=== PATIENT | male | born 1990 ===

== ENCOUNTER 2017-05-20 07:30 | Day surgery (SDC) | payer SELFPAY ==
[~2017-05-20] VITALS: Ht 180.3 cm; Wt 93.0 kg
[2017-05-20] MEDS ORDERED: NKM (08:26)
[2017-05-20] MEDS ORDERED: VALIUM10 MG ORAL (08:27)
[2017-05-20 08:31] VITALS: BP 136/60
[2017-05-20] MEDS ORDERED: Lidocaine 1% 10mg/ml/Epi 0.005mg/ml 30ml vial INJ ONE (08:55)
[2017-05-20] MEDS ORDERED: Maxitrol Opth Oint 3.5gm ONE (08:55)
[2017-05-20] MEDS ORDERED: BSS 15ml BTL ONE (08:55)
[2017-05-20] MEDS ORDERED: Povidone-Iodine 5% opth solution ONE (08:55)
[2017-05-20] MEDS ORDERED: Lidocaine 2% 20mg/ml/Epi 0.005mg/ml 20ml vial ONE (08:55)
--- NOTE | 2017-05-20 10:26 | Operative Note - PDOC ---
Operative Note Operative Note Date of Operation/Procedure: May 20, 2017 Chief Complaint: Mass - Left lower eyelid Pre-op Diagnosis: Achrocordon left lower eyelid Procedure: Excision of achrocordon left lower eyelid Post-op Diagnosis: Same Post-op Diagnosis: same as pre-op Surgeon: Brent Anesthesiologist: Tito Anesthesia: local Specimen: none Complications: none Condition: stable Fluids: None Estimated Blood Loss: minimal Drains: none Packing: None Implant(s) used?: No Indications for Procedure Achrocordon left lower eyelid Description of Procedure Excision of achrocordon left lower eyelid NATIVIDAD CARRIZALES M.D. May 20, 2017 10:26
--- NOTE | 2017-05-20 10:27 | Pre-Procedure Note/Attestation ---
Pre-Procedure Note/Attestation Complete Prior to Procedure Planned Procedure: left Procedure Narrative: Excision of achrocordon left lower eyelid Indications for Procedure Pre-Operative Diagnosis: Achrocordon left lower eyelid Attestation I attest that I discussed the nature of the procedure; its benefits; risks and complications; and alternatives (and the risks and benefits of such alternatives ), prior to the procedure, with the patient (or the patient's legal liability claims representative). I attest that, if there was a reasonable possibility of needing a blood transfusion, the patient (or the patient's legal liability claims representative) was given the [facility] standardized written summary, pursuant to the [place] A[place] Blood Safety Act ([place] Health and Safety Code # 1645, as amended). I attest that I re-evaluated the patient just prior to the surgery and that there has been no change in the patient's H&P, except as documented below: NATIVIDAD CARRIZALES M.D. May 20, 2017 10:27
[2017-05-20 10:30] VITALS: BP 143/80
[2017-05-20 10:40] VITALS: BP 142/81
--- NOTE | 2017-05-20 22:15 | Operative Note - Dictated ---
DATE OF OPERATION: 05/20/2017 PREOPERATIVE DIAGNOSIS: Acrochordon, left lower eye lid. POSTOPERATIVE DIAGNOSIS: Acrochordon, left lower eye lid. PROCEDURE: Excision of acrochordon, left lower eye lid. SURGEON: Pedro Luis Kennedy M.D. [employer] MANAGER: None. ANESTHESIA: Local by surgeon. PROCEDURE IN DETAIL: After consent was obtained, the patient was taken to the operating room and placed supine on the table. Adequate local anesthesia had been infiltrated in the preoperative area with 0.5 mL of Lidocaine with epinephrine 1%. The face was prepped and draped in the usual sterile surgical fashion and the local anesthetic was supplemented with 0.2 mL of 1% lidocaine with epinephrine. The acrochordon was excised using #15 blade at its stalk and single 6-0 plain gut suture was placed. All sponge and instrument counts were correct at the end of the procedure. This patient was taken to recovery in excellent condition postoperatively. Pedro Luis Kennedy M.D. DR: Carol JOB#: [id number] CC: PORTIA
== END 2017-05-20 10:45 | disposition home or self-care (01) ==
LOC: SUR 07:30
DX: L91.8 Other hypertrophic disorders of the skin (principal)